=== PATIENT | female | born 1990 | race Caucasian/White ===

== ENCOUNTER 2019-05-19 08:00 | Outpatient (CLI) | payer MEDICAID ==
[2019-05-19 12:44] LABS: BASOPHILS % (AUTO) 0.7 %; EOSINOPHILS # (AUTO) 0.1 10^3/uL (0.0-0.7); EOSINOPHILS % (AUTO) 2.2 %; HGB - HEMOGLOBIN 12.1 g/dL (12.0-16.0); LYMPHOCYTES # (AUTO) 1.5 10^3/uL (1.5-3.5); LYMPHOCYTES % (AUTO) 27.7 %; MEAN CORPUSCULAR HEMOGLOBIN 28.8 pg (27.0-31.0); MEAN CORPUSCULAR HGB CONC 31.4 g/dL (32.0-36.0); MEAN CORPUSCULAR VOLUME 91.7 fL (81.0-99.0); MEAN PLATELET VOLUME 9.7 fL (7.9-10.8); MONOCYTES # (AUTO) 0.5 10^3/uL (0.0-1.0); MONOCYTES % (AUTO) 8.5 %; NEUTROPHILS # (AUTO) 3.4 10^3/uL (1.5-6.6); NEUTROPHILS % (AUTO) 60.5 %; PLT - PLATELET COUNT 235 10^3/uL (130-450); RED CELL DISTRIBUTION WIDTH 12.5 % (12.0-15.0); WHITE BLOOD COUNT 5.6 x10^3/uL (4.8-10.8)
[2019-05-19 12:57] LABS: ALBUMIN 4.3 g/dL (3.2-5.5); ALBUMIN/GLOBULIN RATIO 1.3 (1.0-2.2); ALKALINE PHOSPHATASE 50 IU/L (42-121); ALT ALANINE AMINOTRANSFERASE 31 IU/L (10-60); AST ASPARTATE AMINOTRANSFERASE 26 IU/L (10-42); BILIRUBIN,TOTAL 0.4 mg/dL (0.2-1.0); BUN - BLOOD UREA NITROGEN 13 mg/dL (6-20); CALCIUM 9.1 mg/dL (8.5-10.3); CARBON DIOXIDE - CO2 28 mmol/L (21-32); CHLORIDE 104 mmol/L (101-111); CHOL/HDL RATIO 3.5 (<4.4); CHOLESTEROL 188 mg/dL; CREATININE 0.7 mg/dL (0.4-1.0); GFR - MDRD 98 (>89); GLUCOSE 99 mg/dL (70-100); HDL CHOLESTEROL 54 mg/dL; LDL CHOLESTEROL,CALCULATED 109 mg/dL; SODIUM 139 mmol/L (135-145); TOTAL PROTEIN 7.5 g/dL (6.7-8.2); VLDL CHOLESTEROL 25 mg/dL
== END 2019-05-19 23:59 | disposition home or self-care (01) ==
LOC: LAB.WCP 08:00
PROVIDERS: ATTEND Nurse Practitioner Family
DX: Z00.00 Encounter for general adult medical examination without abnormal findings (principal)
CPT/HCPCS: 36415; 80050; 80061; 83721

== ENCOUNTER 2019-05-25 12:08 | Outpatient (CLI) | payer MEDICAID ==
[2019-05-25 13:25] LABS: HB2 TOTAL 12.2 g/dL; HEMOGLOBIN A1C 0.42 g/dL; HEMOGLOBIN A1C % 5.3 % (4.6-6.2)
== END 2019-05-25 12:09 | disposition home or self-care (01) ==
LOC: LAB 12:08
PROVIDERS: ATTEND Nurse Practitioner Family
DX: Z68.37 Body mass index [BMI] 37.0-37.9, adult (principal)
CPT/HCPCS: 36415; 83036

== ENCOUNTER 2021-01-01 16:09 | Emergency (ER) | payer MEDICAID ==
[2021-01-01] MEDS ORDERED: KETOROLAC 60 MG/2 ML VIAL IM STA (17:11)
--- NOTE | 2021-01-01 17:14 | ED Physician Documentation ---
History of Present Illness - Stated complaint Stated Complaint: LT SIDE NECK PAIN - Chief complaint Chief Complaint: Back Pain - History obtained from History obtained from: Patient - History of Present Illness Timing: Yesterday Pain level max: 8 Pain level now: 6 - Additonal information Additional information: Patient is a 30-year-old female who presents to the emergency department with left-sided neck pain for the past 2 days. Worse with movement, better with rest. Denies any trauma. No fevers. No nausea or vomiting. No numbness or tingling. Has gradually become stiffer over the past 1 to 2 days and now is having difficulty moving her neck. Denies any possibility of . Review of Systems Constitutional: denies: Fever, Chills GI: denies: Vomiting : denies: Now EGA Skin: denies: Rash Musculoskeletal: denies: Back pain Neurologic: denies: Focal weakness, Numbness PD PAST MEDICAL HISTORY - Past Medical History Past Medical History: No - Present Medications Home Medications: Ambulatory Orders Medication Instructions Recorded Confirmed HYDROcod/ACETAM 5/325 [[place] 5/325] 1 - 2 ea PO Q6H PRN #14 tablet 01/01/21 Multivitamin 1 each PO DAILY 01/01/21 01/01/21 methocarbamoL [Robaxin] 500 mg PO Q6H PRN #20 tablet 01/01/21 - Allergies Allergies/Adverse Reactions: Allergies Allergy/AdvReac Type Severity Reaction Status Date / Time No Known Drug Allergies Allergy Verified 01/01/21 16:17 - Living Situation Living Situation: reports: With family Living Arrangement: reports: At home PD ED PE NORMAL - Vitals Vital signs reviewed: Yes - General General: Alert and oriented X 3, No acute distress, Well developed/nourished - HEENT HEENT: PERRL - Neck Neck: Supple, no meningeal sign, No bony TTP, No JVD, No bruit, Other (No step- off or deformity. Paraspinal muscle spasm left Paracervical. Neurovascular intact. Significant limited range of motion secondary to pain) - Cardiac Cardiac: RRR - Respiratory Respiratory: No respiratory distress, Clear bilaterally - Back Back: No spinal TTP - Derm Derm: Warm and dry - Extremities Extremities: Normal ROM s pain - Neuro Neuro: Alert and oriented X 3, electronic induction hardener 2-12 intact, No motor deficit, No sensory deficit, Normal speech - Psych Psych: Normal mood, Normal affect Results - Vitals Vitals: Vital Signs - 24 hr 01/01/21 01/01/21 16:16 17:50 Temperature 37.1 C 37.1 C Heart Rate 66 85 Respiratory 16 16 Rate Blood Pressure 122/80 126/86 H O2 Saturation 100 98 Oxygen O2 Source Room air PD MEDICAL DECISION MAKING - ED course Complexity details: considered differential, d/w patient ED course: Patient with neck spasm. Will place on muscle relaxants and pain medication for home. Encourage gentle stretching. No evidence of infection, vertebral artery dissection, coronary syndrome. Patient counseled regarding signs and symptoms for which I believe and urgent re-evaluation would be necessary. Patient with good understanding of and agreement to plan and is comfortable going home at this time This document was made in part using voice recognition software. While efforts are made to proofread this document, sound alike and grammatical errors may occur. Departure - Departure Disposition: 01 Home, Self Care Clinical Impression: Neck muscle spasm Condition: Good Instructions: ED Spasm Neck No Injury Follow-Up: ANNA MARIE MOSLEY ARNP [Primary Care Provider] - Within 1 week Prescriptions: HYDROcod/ACETAM 5/325 [[place] 5/325] 1 - 2 ea PO Q6H PRN #14 tablet PRN Reason: Pain methocarbamoL [Robaxin] 500 mg PO Q6H PRN #20 tablet PRN Reason: muscle spasm Comments: Follow-up with your doctor for further care. Continue gentle stretching at home. Do not drive or operate heavy machinery while taking the Vicodin or Robaxin. Heat may help with this as well. Gentle massage can be useful as well. I am prescribing a short course of narcotic pain medication for you. These are potentially dangerous and addictive medications that should be used carefully. These medications may constipate you. Take an wryn-ubc-dnyfjmr stool softener (docusate) twice daily with plenty of water while taking these medications. If you go 24 hours without a bowel movement, take nypu-rne-dpbozro miralax, per package instructions. Do not drink or drive while taking these medications. If you received narcotic or sedating medications while in the emergency department, do not drive for 24 hours. Store this medication in a safe, secure place and out of reach of children. It is a violation of federal law to give or sell this medication to another person or to use in a manner other than prescribed. The ED will not refill narcotic prescriptions, including prescriptions lost or stolen. To dispose of unwanted medications: 1. [facility] at [address] in [place] has a medication drop box. They accept prescription medications (in pill form) Friday through Friday 9:00 a.m. to 5:00 p.m. 2. The [facility] [employer] accepts prescription medications (in pill form only) for disposal year round. Call for more information. 3. Contact the [facility] for the next [facility] sponsored prescription drug collection event. , [phone], or [phone]; Discharge Date/Time: 01/01/21 18:02
[2021-01-01 17:51] VITALS: BP 126/86
== END 2021-01-01 18:02 | disposition home or self-care (01) ==
LOC: ED 16:09
DX: M62.838 Other muscle spasm (principal)
CPT/HCPCS: 96372; 99283; 99284